=== PATIENT | male | born 1990 | race African-American/Black ===

== ENCOUNTER 2023-10-19 13:54 | Emergency (ER) | payer SELFPAY ==
[2023-10-19] MEDS ORDERED: Ibuprofen 200 MG TAB ONE (15:32)
[2023-10-19] MEDS ORDERED: Acetaminophen 500 MG TAB ONE (15:32)
== END 2023-10-19 17:17 | disposition home or self-care (01) ==
LOC: ERS 13:54
DX: J02.0 Streptococcal pharyngitis (principal); F17.210 Nicotine dependence, cigarettes, uncomplicated
CPT/HCPCS: 87430; 99283